=== PATIENT | female | born 1970 | race American Indian/Alaskan Native ===

== ENCOUNTER 2018-10-19 10:54 | Outpatient (CLI) | payer BC ==
--- NOTE | 2018-10-22 13:53 | Mammography Report ---
BILATERAL DIGITAL DIAGNOSTIC MAMMOGRAM with CAD: 10/19/18 10:54:00 CLINICAL: Right clear nipple discharge. COMPARISON:09/22/13 FINDINGS: The breasts are heterogeneously dense, which may obscure small masses. Partial effacement of a right outer asymmetry and a right inner asymmetry on spot magnification CC views. Partial effacement of right asymmetries on MLO diabetes. No mass, architectural distortion or suspicious calcifications. The left breast is negative. The patient could not stay for a right breast ultrasound to complete the exam. IMPRESSION: Right asymmetries requiring further evaluation with ultrasound. BI-RADS CATEGORY: 0--Needs Additional Imaging RECOMMENDATION: Return for a global right breast ultrasound to continue workup for a right clear nipple discharge. ACR BI-RADS MAMMOGRAPHIC CODES: 0 = Needs additional imaging evaluation; 1 = Negative; 2 = Benign; 3 = Probably benign; 4 = Suspicious; 5 = Malignant; 6 = Known biopsy-proven malignancy COMMENT: 1. Dense breast tissue, i.e., adenosis, fibrocystic changes, etc., may obscure an underlying neoplasm. 2. Approximately 10% of cancers are not detected with mammography. 3. A negative mammography report should not delay biopsy if a clinically suspicious mass is present. COMMENT: Patient follow-up letters are generated by our [employer] application.
== END 2018-10-19 10:55 | disposition home or self-care (01) ==
LOC: SPVWC 10:54
PROVIDERS: ATTEND Family Medicine
DX: N64.89 Other specified disorders of breast (principal)
CPT/HCPCS: 77066

== ENCOUNTER 2018-11-01 08:38 | Outpatient (CLI) | payer BC ==
--- NOTE | 2018-11-01 09:54 | Ultrasound Report ---
RIGHT BREAST ULTRASOUND: 11/01/18 08:38:00 CLINICAL: Spontaneous clear nipple discharge for several months. She says that she sees that several times a week. COMPARISON: 10/29/18 mammogram FINDINGS: Ultrasound of the right breast(including all four quadrants and the retroareolar area) was performed and demonstrated no solid mass or shadowing. Mild retroareolar duct ectasia at 12 o'clock with no intraductal mass identified. A benign cyst at 3 o'clock 6 cm from the nipple measures 8 x 7 x 5 mm. IMPRESSION: Mild probably benign duct ectasia and a benign cyst at 3 o'clock. However, the clinical symptoms warrant consultation with a breast surgeon. BI-RADS 0--Needs Additional Evaluation RECOMMENDATION: Consultation with a breast surgeon and consideration for breast MRI to evaluate the right nipple discharge.
== END 2018-11-01 08:39 | disposition home or self-care (01) ==
LOC: SPVWC 08:38
PROVIDERS: ATTEND Family Medicine
DX: N64.52 Nipple discharge (principal)